=== PATIENT | male | born 1990 ===

== ENCOUNTER 2016-09-08 10:22 | Emergency (ER) | payer OTHER, MEDICAID ==
[~2016-09-08 10:22] MED LIST: ETOMIDATE 20 MG/10 ML VIAL IVP ONE; ROCURONIUM 100 MG/10 ML VIAL IVP ONE
[2016-09-08] MEDS ORDERED: PROPOFOL/EMULSION 50 ML IV ONE (10:25)
[2016-09-08] MEDS ORDERED: fentaNYL 100 MCG/2 ML INJ IVP ONE ×2 (10:26→11:20)
[2016-09-08] MEDS ORDERED: PROPOFOL/EMULSION 1,000 MG/100 ML BOTTLE IV ONE ×2 (10:27→10:51)
[2016-09-08] MEDS ORDERED: TDAP ADULT 0.5 ML INJ (BOOSTRIX) IM ONE (10:30)
[2016-09-08] MEDS ORDERED: ceFAZolin 2 GM/DEXTROSE 100 ML IV ONE (10:30)
[2016-09-08] MEDS ORDERED: CEFAZOLIN 2 GM/DEXTROSE/100 ML BAG IV ONE (10:30)
[2016-09-08] MEDS ORDERED: PROPOFOL/EMULSION 500 MG/50 ML BOTTLE IV ONE (10:45)
[2016-09-08] MEDS ORDERED: SODIUM BICARBONATE 50 MEQ/50 ML SYR IVP ONE (10:50)
[2016-09-08 11:20] LABS: ADD DIFF? YES; ADD MORPH? NO; ATYPICAL LYMPHOCYTE FLAG 10 (0-99); FRAGMENT RBC FLAG 0 (0-99); HEMATOCRIT 48.6 % (40.0-51.0); HEMOGLOBIN 16.1 g/dL (13.7-17.5); LEFT SHIFT FLG 10 (0-99); LIPEMIA HEMOLYSIS FLAG 80 (0-99); MEAN CELL HEMOGLOBIN 31.1 pg (27.9-34.1); MEAN CELL HEMOGLOBIN CONCENTR. 33.1 g/dL (32.4-36.7); MEAN PLATELET VOLUME 9.7 fL (8.7-11.7); PLATELET CLUMPS FLAG 10 (0-99); PLATELET COUNT 404 10^3/uL (150-400); RED BLOOD CELL COUNT 5.17 10^6/uL (4.40-6.38); RED CELL DISTRIBUTION WIDTH 12.4 % (11.5-15.2)
[2016-09-08 11:21] LABS: ADD SCAN? NO
[2016-09-08 11:24] LABS: COLOR PALE YELLOW; LEUKOCYTE ESTERASE,URINE NEGATIVE (NEGATIVE); NITRITE,URINE NEGATIVE (NEGATIVE)
[2016-09-08] MEDS ORDERED: VECURONIUM BROMIDE 10 MG VIAL IV ONE (11:26)
[2016-09-08 11:27] LABS: BACTERIA TRACE /hpf (NONE SEEN); MUCUS TRACE /lpf (NONE-1+)
[2016-09-08] MEDS ORDERED: SODIUM NITRITE IV ONE (11:30)
[2016-09-08] MEDS ORDERED: SODIUM THIOSULFATE IV ONE (11:30)
[2016-09-08 11:31] LABS: ALANINE AMINOTRANSFERASE 125 IU/L (21-72); ALBUMIN 4.6 g/dL (3.5-5.0); ALKALINE PHOSPHATASE 102 IU/L (38-126); ANION GAP 24 mEq/L (8-16); ASPARTATE AMINOTRANSFERASE 110 IU/L (17-59); BILIRUBIN,TOTAL 0.6 mg/dL (0.1-1.4); BILIRUBIN-CONJUGATED 0.5 mg/dL (0.0-0.5); BILIRUBIN-UNCONJUGATED 0.1 mg/dL (0.0-1.1); CALCIUM 9.5 mg/dL (8.5-10.4); CARBON DIOXIDE 12 mEq/l (22-31); CHLORIDE 104 mEq/L (97-110); CREATININE 1.1 mg/dL (0.7-1.3); GLOMERULAR FILTRATION RATE > 60; GLUCOSE 161 mg/dL (70-100); POTASSIUM 4.2 mEq/L (3.5-5.2); SODIUM 140 mEq/L (134-144); TOTAL PROTEIN 7.5 g/dL (6.3-8.2)
[2016-09-08 11:33] LABS: INR 1.11 (0.83-1.16); PROTIME(PATIENT) 14.2 SEC (12.0-15.0)
[2016-09-08 11:34] LABS: APTT 23.6 SEC (23.0-38.0)
[2016-09-08 11:38] LABS: CREATINE KINASE-MB FRACTION 2.29 ng/mL (0-3.19)
[2016-09-08 11:51] LABS: PLATELET ESTIMATE ADEQUATE (ADEQ)
[2016-09-08 11:57] VITALS: BP 152/93; PULSE 116; RESP 16; TEMP 96.8; O2SAT 97
[2016-09-08] MEDS ORDERED: VECURONIUM BROMIDE 10 MG VIAL ONE (12:00)
[2016-09-08] MEDS ORDERED: fentaNYL 100 MCG/2 ML INJ ONE (12:00)
[2016-09-08] MEDS ORDERED: ROCURONIUM 100 MG/10 ML VIAL ONE (12:01)
[2016-09-08] MEDS ORDERED: ETOMIDATE 40 MG/20 ML INJ ONE (12:01)
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
[2016-09-08] MEDS ORDERED: SODIUM BICARBONATE 10 MEQ/10 ML SYR IVP ONE (16:36)
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
== END 2016-09-08 11:40 | disposition short-term general hospital (02) ==
PROC: 0BH17EZ Insertion of Endotracheal Airway into Trachea, Via Natural or Artificial Opening (ICD-10-PCS; principal; 2016-09-08)
DX: T20.26XA Burn of second degree of forehead and cheek, initial encounter (principal); T23.202A Burn of second degree of left hand, unspecified site, initial encounter; T24.202A Burn of second degree of unspecified site of left lower limb, except ankle and foot, initial encounter; T21.22XA Burn of second degree of abdominal wall, initial encounter; V54.5XXA Driver of pick-up truck or van injured in collision with heavy transport vehicle or bus in traffic accident, initial encounter; Y92.410 Unspecified street and highway as the place of occurrence of the external cause; Y99.8 Other external cause status; Y93.89 Activity, other specified
CPT/HCPCS: 82947-QW; 96365; J0690; J2704; J3010